=== PATIENT | male | born 1985 | race Caucasian/White ===

== ENCOUNTER 2017-11-08 06:49 | Emergency (ER) | payer BC, OTHER ==
[2017-11-08 06:59] VITALS: BP 157/104
[2017-11-08] MEDS ORDERED: DEXAMETHASONE SOD PHOS INJ 10 MG/1 ML VIAL IM ONE (07:27)
[2017-11-08] MEDS ORDERED: KETOROLAC TROMETHAMINE INJ/PF 30 MG/1 ML SDV IM ONE (07:27)
[2017-11-08] MEDS ORDERED: AMLODIPINE BESYLATE 10 MG TABLET PO ONE (07:27)
--- NOTE | 2017-11-08 07:32 | ER Document Report ---
HPI - HPI Patient complains to provider of: back pain Pain Level: 3 Context: Patient is a 32-year-old male presents emergency department complaining of acute back injury. Patient states that he was walking out of his house this morning where he lost his balance and went to catch himself landing on his right foot and he felt a sharp stabbing pain in his back. States it is in his right buttock but does not radiate down the back of his leg and no central back pain. Denies any urinary/stool incontinence, saddle anesthesia. Patient able to ambulate and was able to drive here. States when he has had issues like this in the past he takes Flexeril in a couple days rest. [facility] PMH: HTN on amlodipine Past Medical History - Social History Smoking Status: Current Some Day Smoker Family History: Reviewed & Not Pertinent Vertical Provider Document - CONSTITUTIONAL Agree With Documented VS: Yes Notes: PHYSICAL EXAM GENERAL: Alert, interacts well. Back: Negative for CVA tenderness. Pain reproducible palpation of the right gluteal region. No spinous process tenderness, step-offs or deformities. Gait stable. Full range of motion of bilateral hips nontender to palpation. Pelvis stable EXTREMITIES: Moves all 4 extremities spontaneously. No edema, radial and dorsalis pedis pulses 2/4 bilaterally. No cyanosis. NEUROLOGICAL: Alert and oriented x4. Normal speech. PSYCH: Normal affect, normal mood. SKIN: Warm, dry, normal turgor. No rashes or lesions noted. - INFECTION CONTROL TRAVEL OUTSIDE OF THE [place] IN LAST 30 DAYS: No - RESPIRATORY O2 Sat by Pulse Oximetry: 97 Course - Re-evaluation Re-evalutation: 11/08/17 07:30 Patient is a 32-year-old male who is hemodynamically stable, no acute distress. The patient presents with low back pain without signs of spinal cord compression, cauda equina syndrome, infection, aneurysm, or other serious etiology. The patient is neurologically intact. Given the extremely low risk of these diagnoses further testing and evaluation for these possibilities does not appear to be indicated at this time. The patient has been instructed to return if the symptoms worsen or change in any way. 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 Patient agrees with plan. - Vital Signs Vital signs: Temp Pulse Resp BP Pulse Ox 97.6 F 118 H 18 157/104 H 97 11/08/17 06:51 11/08/17 06:51 11/08/17 06:51 11/08/17 06:51 11/08/17 06:51 Discharge - Discharge Clinical Impression: Low back pain Qualifiers: Chronicity: acute Back pain laterality: right Sciatica presence: without sciatica Qualified Code(s): M54.5 - Low back pain Condition: Good Disposition: HOME, SELF-CARE Additional Instructions: LOW BACK PAIN: Three out of every four people will have an episode of disabling back pain during their lifetime. Most commonly the pain is due to straining of the muscles and ligaments in the low back. Usual treatment includes: (1) Rest on a firm surface. Avoid lying on your stomach. (2) Ice pack the painful area. After a few days, gentle heat may be used intermittently to relax the area, or ice packs can be continued. (3) Medication may be needed -- muscle relaxers and antiinflammatory medicines are commonly used. (4) As the back improves, exercises are prescribed to strengthen the back and abdominal muscles. Your doctor will advise you on the proper care for your back at each stage in your recovery. You may be better in a few days -- or healing may take several weeks. If new symptoms of a "herniated disc" (radiation of pain, numbness, or tingling down the back of the leg or weakness in the leg) occur, you should be re-examined. Further testing may be necessary. PAIN MEDICATION INJECTION: You have received an injection of a pain medication. You should experience significant pain relief within 45 minutes. If this injection was a narcotic -- it will impair your judgement, slow your reaction time and make you sleepy (as well as relieve your pain). Narcotics also can cause nausea. You should not drive, work with machinery, or perform any task requiring mental alertness until all effects of the medication are gone -- six to eight hours. Do not take any alcohol, or sedatives, and do not take any other medication without checking with your physician. MUSCLE RELAXERS: Muscle relaxing medications are usually prescribed for acute muscle spasm or injury to the neck and back. They are often combined with antiinflammatory pain medication for increased relief. You may stop the muscle relaxer when the pain and stiffness have improved. Start the medication again if spasms recur. Muscle relaxers may cause drowsiness, especially with the first dose. Do not operate machinery or drive while under the effects of the medication. Most muscle relaxers last up to 24 hours. Do not combine the medication with alcohol. ICE PACKS: Apply ice packs frequently against the painful area. Many different schedules are recommended, such as "20 minutes on, 20 minutes off" or "one hour ice, two hours rest." If you need to work, you may need to go longer between ice treatments. You should plan to have the area ice packed AT LEAST one fourth of the time. The ice should be applied over the wrap, tape, or splint, or over a layer of cloth -- not directly against the skin. Some ice bags have a built-in cloth and can be put directly on the skin. WARM PACKS: After approximately two days, apply gentle heat (such as a heating pad or hot water bottle) for about 20 to 30 minutes about every two hours -- at least four times daily. Warmth and elevation will help you make a more rapid recovery , and will ease the pain considerably. Do not use HOT heat, and never apply heat for longer than 30 minutes. The continuous heat can invisibly damage skin and muscles -- even when no burn is seen on the surface. Damaged muscles can make you MORE sore. FOLLOW-UP CARE: If you have been referred to a physician for follow-up care, call the physician s office for an appointment as you were instructed or within the next two days. If you experience worsening or a significant change in your symptoms, notify the physician immediately or return to the Emergency Department at any time for re-evaluation. Prescriptions: Ibuprofen [Motrin 800 mg Tablet] 800 mg PO Q8H PRN #30 tab PRN Reason: Forms: Elevated Blood Pressure, Return to Work
== END 2017-11-08 07:50 | disposition home or self-care (01) ==
LOC: ER 06:49
DX: M54.5 Low back pain (principal); I10 Essential (primary) hypertension; Z79.899 Other long term (current) drug therapy; F17.200 Nicotine dependence, unspecified, uncomplicated
CPT/HCPCS: 99283; 96372; J1885; J1100

== ENCOUNTER 2018-12-10 04:51 | Emergency (ER) | payer BC ==
[2018-12-10 05:00] VITALS: BP 178/111
[2018-12-10] MEDS ORDERED: IBUPROFEN 800 MG TABLET PO ONE (05:12)
--- NOTE | 2018-12-10 05:22 | ER Document Report ---
HPI - HPI Patient complains to provider of: right foot pain Time Seen by Provider: 12/10/18 05:11 Pain Level: 3 Context: Patient is a morbidly obese male who states that he has had pain in lateral aspect of his right foot for almost 5 months. Patient states that 5 months ago he believes that he rolled his right ankle. States since then he has had intermittent pain that "comes and goes with the weather." Patient states he has been trying to lose weight recently and has been doing a lot of walking. Patient states today he tried to put pressure on the right foot was having increased pain which is why he finally presents to the emergency department for evaluation. Patient states he knows that he has hypertension. States he is currently seeing his primary care doctor to help evaluate that. States he has been placed on multiple different medications that inevitably make his blood pressure too low which is why he currently is on nothing. Past medical history: Hypertension Medications: Currently none Allergies: None Past Medical History - General Information source: Patient - Social History Smoking Status: Unknown if Ever Smoked Family History: Reviewed & Not Pertinent - Past Medical History Cardiac Medical History: Reports: Hx Hypertension Renal/ Medical History: Denies: Hx Peritoneal Dialysis Vertical Provider Document - CONSTITUTIONAL Agree With Documented VS: Yes Notes: GENERAL: Morbidly obese alert, interacts well. No acute distress. HEAD: Normocephalic, atraumatic. EYES: Pupils equal, round, and reactive to light. Extraocular movements intact. ENT: Oral mucosa moist, tongue midline. NECK: Full range of motion. Supple. Trachea midline. LUNGS: Clear to auscultation bilaterally, no wheezes, rales, or rhonchi. No respiratory distress. HEART: Regular rate and rhythm. No murmur ABDOMEN: Soft, non-tender. Non-distended. Bowel sounds present in all 4 quadrants. EXTREMITIES: Moves all 4 extremities spontaneously. No edema, normal radial and dorsalis pedis pulses bilaterally. No cyanosis. 5 out of 5 strength all 4 extremities. Patient is complaining of pain upon the lateral aspect of the right foot. No pain on palpation lateral or medial malleolus. No pain palpation right bower, right knee, right femur, right hip. No erythema or ecchymosis noted to patient's right foot. BACK: no cervical, thoracic, lumbar midline tenderness. No saddle anesthesia, normal distal neurovascular exam. NEUROLOGICAL: Alert and oriented x3. Normal speech. cranial nerves II through XII grossly intact PSYCH: Normal affect, normal mood. SKIN: Warm, dry, normal turgor. No rashes or lesions noted. - INFECTION CONTROL TRAVEL OUTSIDE OF THE [place] IN LAST 30 DAYS: No Course - Re-evaluation Re-evalutation: 12/10/18 06:10 Patient's x-ray was negative at this time. I do not believe this is gout because the area is not red, swollen, hot to touch it is also not in a joint. Discussed close follow-up with orthopedics, use of crutches and use of surgical boot. Patient voices understanding is stable for discharge. - Vital Signs Vital signs: Temp Pulse Resp BP Pulse Ox 98.4 F 106 H 18 178/111 H 95 12/10/18 04:59 12/10/18 04:59 12/10/18 04:59 12/10/18 04:59 12/10/18 04:59 Discharge - Discharge Clinical Impression: Foot injury Qualifiers: Encounter type: initial encounter Laterality: right Qualified Code(s): S99.921A - Unspecified injury of right foot, initial encounter Condition: Stable Disposition: HOME, SELF-CARE Instructions: Exercises for the Foot Muscles ([facility]), Ice & Elevation ([facility]) Additional Instructions: He has been seen and treated in the emergency department for an injury to her right foot. At this point in time your x-rays show no signs of fracture. Please make sure you follow-up with your orthopedic provider Dr. Billy. I will provide phone numbers in this emergency department packet. Please also continue to take Tylenol Motrin, stay off it as much as you can. Return to the emergency room for any other symptoms. Forms: Return to Work Referrals: VALERIE UGERRERO MD [Primary Care Provider] - Follow up as needed LISA BILLY MD [ACTIVE STAFF] - Follow up as needed
--- NOTE | 2018-12-10 06:01 | RADIOLOGY REPORT (SQ) ---
EXAM DESCRIPTION: XR FOOT 3 OR MORE VIEWS COMPLETED DATE/TME: 12/10/2018 05:11 CLINICAL HISTORY: 33 years Male, pain COMPARISON: None. Findings: Moderate calcaneal enthesophytes. Bones, joints, and soft tissues of the RIGHT XR FOOT 3 VIEWS appear otherwise intact. IMPRESSION: No acute findings.
== END 2018-12-10 06:55 | disposition home or self-care (01) ==
LOC: ER 04:51
DX: S99.921A Unspecified injury of right foot, initial encounter (principal); M79.671 Pain in right foot; M25.571 Pain in right ankle and joints of right foot; X58.XXXA Exposure to other specified factors, initial encounter; I10 Essential (primary) hypertension
CPT/HCPCS: 99283